=== PATIENT | female | born 1955 | race Caucasian/White ===

== ENCOUNTER 2018-03-03 08:38 | Emergency (ER) | payer BC, OTHER ==
[2018-03-03 08:49] VITALS: BMI 26.1
[2018-03-03] MEDS ORDERED: KETOROLAC TROMETHAMINE 30 MG/1 ML VIAL IVPUSH ONE (09:04)
[2018-03-03] MEDS ORDERED: SODIUM CHLORIDE 500 ML IV STA (09:04)
[2018-03-03 09:05] LABS: PH,URINE 5.5 (4.5-8); URINE APPEARANCE Clear; URINE BILIRUBIN Negative (NEGATIVE); URINE COLOR Yellow; URINE GLUCOSE (UA) Negative (NEGATIVE); URINE KETONE Negative (NEGATIVE); URINE LEUK ESTERASE Negative (NEGATIVE); URINE NITRITE Negative (NEGATIVE); URINE PROTEIN Negative (NEGATIVE); URINE UROBILINOGEN 0.2 (0.2-1.0)
--- NOTE | 2018-03-03 09:27 | PDOC ---
History of Present Illness - General Chief Complaint: Pain Stated Complaint: left flank pain Time Seen by Provider: 03/03/18 08:42 History Source: Patient Exam Limitations: No Limitations - History of Present Illness Initial Comments: 03/03/18 09:23 Healthy 63-year-old female with history of kidney stones presents with left flank pain intermittently for 3 days. Patient reports gradual onset of sharp stabbing pain and initially localized to the left flank, now radiating down and anteriorly to her abdomen/groin. The pain is a baseline mild discomfort with occasional sharp severe exacerbations that last a few seconds. No associated dysuria or frequency or hematuria, no fevers or chills, no nausea or vomiting. The pain is very similar to past kidney stone pain, but lasting now for 3 days. Spontaneously passed prior stones, no history of procedural interventions. No diarrhea or constipation, no rash, she does go to the gym and reports some positional nature (worse with lying down, better with standing up). Took tylenol without relief, presents for evaluation. Past History - Past Medical History Allergies/Adverse Reactions: Allergies Allergy/AdvReac Type Severity Reaction Status Date / Time No Known Allergies Allergy Verified 03/03/18 09:14 Home Medications: Ambulatory Orders Cyclobenzaprine HCl [Flexeril -] 10 mg PO BID PRN #10 tablet MDD 2 tabs Levothyroxine [Synthroid -] 100 mcg PO DAILY 03/03/18 - Suicide/Smoking/Psychosocial Hx Smoking History: Never smoked Hx Alcohol Use: No Drug/Substance Use Hx: No Review of Systems - Review of Systems Constitutional: No: Chills, Fever Respiratory: No: Cough, Shortness of Breath Cardiac (ROS): No: Chest Pain ABD/GI: No: Constipated, Diarrhea, Nausea, Vomiting : Yes: See HPI, Flank Pain. No: Dysuria, Frequency Musculoskeletal: Yes: Back Pain All Other Systems: Reviewed and Negative *Physical Exam - Vital Signs Last Vital Signs Temp Pulse Resp BP Pulse Ox 97.8 F 80 18 146/91 99 03/03/18 08:39 03/03/18 08:39 03/03/18 08:39 03/03/18 08:39 03/03/18 08:39 - Physical Exam Comments: 03/03/18 09:25 Afebrile, vital signs normal GENERAL: The patient is awake, alert, and fully oriented, in mild distress. HEAD: Normal with no signs of trauma. EYES: PERRL, EOMI ENT: oropharynx clear. Moist mucous membranes. NECK: Normal range of motion, supple. LUNGS: Breath sounds equal, clear to auscultation bilaterally. No wheeze/ crackles. HEART: Regular rate and rhythm, normal S1 and S2 without murmur or rub. ABDOMEN: Soft/nondistended. BS wnl. Suprapubic and lateral L abdominal discomfort to palpation without guarding or rebound. ++ L CVAT. No palpable masses. No hepatosplenomegaly. EXTREMITIES: Normal range of motion, no edema. 2+ distal pulses. No cords, erythema, or tenderness. NEUROLOGICAL: Cranial nerves II through XII grossly intact. Normal speech, normal gait. PSYCH: Normal mood, normal affect. SKIN: Warm, Dry, no rashes or lesions noted. Moderate Sedation - Procedure Monitoring Vital Signs: Procedure Monitoring Vital Signs Temperature 97.8 F 03/03/18 08:39 Pulse Rate 80 03/03/18 08:39 Respiratory Rate 18 03/03/18 08:39 Blood Pressure 146/91 03/03/18 08:39 O2 Sat by Pulse Oximetry (%) 99 03/03/18 08:39 ED Treatment Course - LABORATORY CBC & Chemistry Diagram: 03/03/18 09:22 03/03/18 09:22 - ADDITIONAL ORDERS Additional order review: Laboratory Results 03/03/18 08:49 Urine Color Yellow Urine Appearance Clear Urine pH 5.5 Ur Specific [place] 1.025 Urine Protein Negative Urine Glucose (UA) Negative Urine Ketones Negative Urine Blood 1+ H Urine Nitrite Negative Urine Bilirubin Negative Urine Urobilinogen 0.2 Ur Leukocyte Esterase Negative - RADIOLOGY Radiology Studies Ordered: Category Date Time Status ABDOMEN & PELVIS CT W/O CONTR [CT] Stat CT Scan 03/03/18 09:05 Ordered Medical Decision Making - Medical Decision Making 03/03/18 09:26 63-year-old female with 3 days of intermittent left flank pain similar to past kidney stones, no fevers or chills, no peritoneal findings on examination. Rule out obstructing stone, rule out superimposed infection, ? musculoskeletal given positional nature. Less likely GI. Labs, urinalysis CT of the abdomen and pelvis given duration of symptoms IV fluids, pain control Reassess 03/03/18 10:49 labs wnl. no leukocytosis, chem normal including Cr, UA with small blood. CT without L ureteral stone/hydro or acute pathology. Pain improved after toradol/tylenol but still with discomfort. will check CTAP with contrast to r/o renal infarct, which can present with this persistent severe L flank pain. otherwise, may be most consistent with musculoskeletal strain. will reassess. 03/03/18 11:58 ct with contrast shows no acute pathology, no infarct, just renal and liver cysts. discussed with patient, feels better. will d/c on nsaids and muscle relaxant for possible muscle strain, understands return criteria, agrees with plan. *DC/Admit/Observation/Transfer Diagnosis at time of Disposition: Left flank pain - Discharge Dispostion Disposition: HOME Condition at time of disposition: Improved - Prescriptions Prescriptions: Cyclobenzaprine HCl [Flexeril -] 10 mg PO BID PRN #10 tablet MDD 2 tabs PRN Reason: Muscle Spasms - Referrals - Patient Instructions Printed Discharge Instructions: DI for Muscle Strain Additional Instructions: Activity as tolerated. Stay hydrated. Blood tests, a urine test, and CAT scans with and without contrast showed no acute abnormalities. The pain may be due to a muscle strain as we discussed, but if it persists or worsens further testing may be necessary. Aleve 2 tabs twice daily for 3-5 days, preferably with food. Take Flexeril as prescribed as needed as muscle relaxant, this medication can make you lightheaded so take proper precautions. Continue your medications as previously prescribed by your physician. You should follow up with your primary doctor as soon as possible regarding today's emergency department visit. Return to the emergency department for any new or concerning symptoms, particularly persistent or worsening pain, difficulty urinating, GI complaints such as vomiting or diarrhea or bloody stool, fevers or chills, trouble breathing, rash. - Post Discharge Activity
[2018-03-03 09:53] LABS: BASO % 0.6 % (0-2.0); EOS % 1.4 % (0-4.5); HEMATOCRIT 46.9 % (32.4-45.2); HEMOGLOBIN 15.7 GM/dl (10.7-15.3); LYMPH % 32.2 % (8-40); MCH 31.5 pg (25.7-33.7); MCHC 33.5 g/dl (32.0-36.0); MEAN CELL VOLUME 94.1 fl (80-96); MEAN PLT VOLUME 8.7 fl (7.5-11.1); MONO % 6.7 % (3.8-10.2); NEUT % 59.1 % (42.8-82.8); PLATELET COUNT 242 K/MM3 (134-434); RBC 4.99 M/mm3 (3.60-5.2); RDW 11.9 % (11.6-15.6); WHITE BLOOD COUNT 5.7 K/mm3 (4.0-10.8)
[2018-03-03 10:05] LABS: EPI CELLS FEW /HPF; URINE MUCUS 1+; URINE WBC NONE SEEN (0-5)
[2018-03-03 10:11] LABS: ALBUMIN 4.5 g/dl (3.5-5.0); ALK PHOS 79 U/L (32-92); ANION GAP 8 MMOL/L (8-16); BILIRUBIN,TOTAL 0.7 mg/dl (0.2-1.0); BLOOD UREA NITROGEN 12 mg/dl (7-18); CALCIUM 9.2 mg/dl (8.4-10.2); CHLORIDE 104 mmol/L (98-107); CO2 26 mmol/L (22-28); CREATININE 0.7 mg/dl (0.6-1.3); GLUCOSE,RANDOM 105 mg/dl (74-106); POTASSIUM 3.9 mmol/L (3.5-5.1); SGOT/AST 29 U/L (10-42); SGPT/ALT 31 U/L (10-40); SODIUM 138 mmol/L (136-145); TOT PROT 7.2 g/dl (6.4-8.3)
[2018-03-03] MEDS ORDERED: ACETAMINOPHEN INJECTION 100 ML IVPB ONE (10:31)
[2018-03-03] MEDS ORDERED: ACETAMINOPHEN 1000 MG/100 ML VIAL (NON FORMULARY) IVPB ONE (10:38)
[2018-03-03 12:02] VITALS: BP 145/92; PULSE 69; TEMP 98.2
== END 2018-03-03 12:10 | disposition home or self-care (01) ==
LOC: FER 08:38
PROC: 3E033NZ Introduction of Analgesics, Hypnotics, Sedatives into Peripheral Vein, Percutaneous Approach (ICD-10-PCS; principal; 2018-03-03)
PROC: 3E033GC Introduction of Other Therapeutic Substance into Peripheral Vein, Percutaneous Approach (ICD-10-PCS; 2018-03-03)
PROC: 3E0337Z Introduction of Electrolytic and Water Balance Substance into Peripheral Vein, Percutaneous Approach (ICD-10-PCS; 2018-03-03)
DX: R10.32 Left lower quadrant pain (principal)
CPT/HCPCS: 36415; 74176-TC; 74177-TC; 80053; 81003; 81015; 85025; 99282-25; J0131